=== PATIENT | female | born 1970 | race Hispanic/Latino ===

== ENCOUNTER 2024-05-26 10:42 | Emergency (ER) | payer MEDICAID ==
[~2024-05-26] VITALS: Ht 157.5 cm; Wt 84.4 kg
[2024-05-26] MEDS: SODIUM CHLORIDE 0.9% 1000ML 1,000 ML IV STA (11:31)
[2024-05-26] MEDS: ONDANSETRON HCL INJ 2MG/ML 2ML 2 MG/ML VIAL IV ONE (11:31)
[2024-05-26] MEDS: DEXAMETHASONE SOD PHOS INJ 4 MG/ML SDV IV ONE (11:31)
[2024-05-26] MEDS: KETOROLAC TROMETHAMINE 30 MG/ML VIAL IV STA (11:32)
[2024-05-26] MEDS ORDERED: TYLENOL325 MG PO (11:45)
[2024-05-26] MEDS ORDERED: TIZANIDINE HCL4 MG PO (11:45)
[2024-05-26] MEDS ORDERED: IBUPROFEN600 MG PO (11:45)
[2024-05-26] MEDS ORDERED: PREDNISONE50 MG PO (11:45)
[2024-05-26] MEDS: CYCLOBENZAPRINE HCL 10 MG TAB PO ONE (12:30)
[2024-05-26] MEDS: ACETAMINOPHEN 325 MG TAB PO ONE (12:30)
[2024-05-26] MEDS: DIPHENHYDRAMINE HCL INJ 50 MG/ML VIAL IV ONE (12:32)
[2024-05-26 12:44] VITALS: PULSE 54; RESP 16; TEMP 97.9; O2SAT 98
== END 2024-05-26 12:44 | disposition home or self-care (01) ==
LOC: FSED 10:48
DX: M51.26 Other intervertebral disc displacement, lumbar region (principal); X50.1XXA Overexertion from prolonged static or awkward postures, initial encounter; Y92.89 Other specified places as the place of occurrence of the external cause
CPT/HCPCS: 72100; 80053; 81003; 85025; 96374; 96375; 99284; J1100; J1200; J1885; J2405; J7030